=== PATIENT | male | born 1980 ===

== ENCOUNTER 2017-03-18 14:53 | Emergency (ER) | payer SELFPAY ==
[2017-03-18 15:35] VITALS: BP 143/80; PULSE 70; RESP 20; TEMP 97.8; O2SAT 100
--- NOTE | 2017-03-18 16:28 | C.PDOC ---
History Of Present Illness 37 year old male presents to ED for evaluation of persistent hemorrhoids for the past 2 weeks. Notes having prior history of same in the past but this time the area is more swollen and persistent than usual. Pt is s/p OTX hemorrhoid cream for the past 6 weeks and currently on proctosol for the past 5 days with minimal improvement. Notes occasional bleeding. Denies pain, constipation, or any other associated symptoms at this time. 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 PRIOR HO SAME BEFORE BUT CURRENT SX MORE SWOLLEN AND PERSIST THAN USUAL. S/P OTX HEMORRHOID CREAM X 6 WEEKS AND CURRENTLY ON PROCTOSOL X 5 DAYS W MIN IMPROVE. OCC BLEEDING. DENIES PAIN, CONSTIPATION OTHER ASSOC SX. 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 NO THROMBOSIS, ACTIVE BLEED. REMAINDER NEG MDM ADVISED NEED FOR SURGICAL EVAL. OFFERED DILTIAZEM OINTMENT BUT DOES NOT WANT, WILL CONT W CURRENT MEDS. 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, REFERRAL INFO GIVEN Time Seen by Provider: 03/18/17 16:06 Chief Complaint (Nursing): GI Problem History Per: Patient History/Exam Limitations: no limitations Onset/Duration Of Symptoms: Days Current Symptoms Are (Timing): Still Present Recent travel outside of the [place]: No Additional History Per: Patient Past Medical History Reviewed: Historical Data, Nursing Documentation, Vital Signs Vital Signs: Last Vital Signs Temp 97.8 F 03/18/17 15:30 Pulse 70 03/18/17 15:30 Resp 20 03/18/17 15:30 BP 143/80 03/18/17 15:30 Pulse Ox 100 03/18/17 17:19 Family History: States: Unknown Family Hx - Social History Hx Alcohol Use: No Hx Substance Use: No Review Of Systems Except As Marked, All Systems Reviewed And Found Negative. Constitutional: Negative for: Fever, Chills Cardiovascular: Negative for: Chest Pain Respiratory: Negative for: Shortness of Breath Gastrointestinal: Positive for: Rectal Pain (hemorrhoids). Negative for: Abdominal Pain, Diarrhea, Constipation, Melena, Hematochezia Neurological: Negative for: Headache, Dizziness Physical Exam - Physical Exam Appears: Non-toxic, No Acute Distress Skin: Normal Color, Warm, Dry Head: Atraumatic, Normacephalic Eye(s): bilateral: Normal Inspection Oral Mucosa: Moist Neck: Supple Chest: Symmetrical Cardiovascular: Rhythm Regular, No Murmur Respiratory: Normal Breath Sounds, No Rales, No Rhonchi, No Wheezing Gastrointestinal/Abdominal: Soft, No Tenderness Rectal: Hemorrhoids (right side with excoration; no thrombosis, or active bleeding) Back: Normal Inspection, No CVA Tenderness Extremity: Normal ROM, No Pedal Edema, No Deformity Neurological/Psych: Oriented x3, Normal Speech ED Course And Treatment O2 Sat by Pulse Oximetry: 100 (RA) Pulse Ox Interpretation: Normal Medical Decision Making Medical Decision Making: ADVISED NEED FOR SURGICAL EVAL. OFFERED DILTIAZEM OINTMENT BUT DOES NOT WANT, WILL CONT W CURRENT MEDS. 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, REFERRAL INFO GIVEN Disposition Counseled Patient/Family Regarding: Diagnosis, Need For Followup - Disposition Referrals: [facility] [Outside] [facility] [Outside] Disposition: HOME/ ROUTINE Disposition Time: 16:29 Condition: GOOD Instructions: Hemorrhoids (ED) Forms: [employer] (Tanzanian) Print Language: TURKISH - Clinical Impression Clinical Impression: Hemorrhoids - Scribe Statement The provider has reviewed the documentation as recorded by the Scribe Shanta Porter All medical record entries made by the Naimaiblizeth were at my direction and personally dictated by me. I have reviewed the chart and agree that the record accurately reflects my personal performance of the history, physical exam, medical decision making, and the department course for this patient. I have also personally directed, reviewed, and agree with the discharge instructions and disposition.
== END 2017-03-18 16:51 | disposition home or self-care (01) ==
LOC: C.ER 14:53
DX: K64.9 Unspecified hemorrhoids (principal)